=== PATIENT | male | born 2000 | race Caucasian/White ===

== ENCOUNTER 2020-09-29 23:56 | Inpatient (IN) | payer MEDICAID, SELFPAY ==
[2020-09-30 00:04] VITALS: BP 144/90; PULSE 114; RESP 20; TEMP 36.8; O2SAT 100; BMI 37.7
--- NOTE | 2020-09-30 00:19 | W.ED.PSYCH ---
HPI - Psych General: Chief Complaint: Psychiatric Symptoms Stated Complaint: si / took meds Time Seen by Provider: 09/29/20 23:58 Source: patient and EMS Mode of arrival: EMS Limitations: no limitations History of Present Illness: HPI Narrative: 20-year-old male who states he has been hearing voices and having suicidal thoughts over the last week or so. He states he supposed to be on meds but has not been taking them. He states that an hour ago he took 75 200 mg of Xyzal and attempt to kill himself. He states he then decided he did not really want to and called EMS to get here to get help. He denies any worsening improving factors. Associated symptoms: Reports auditory hallucinations, depression and suicidal ideation Review of Systems Const: Denies: fever(s), chills, body aches or change in appetite Eyes: Denies: blurry vision or eye discomfort ENMT: Denies: throat pain or dental pain Card: Denies: chest pain Resp: Denies: dyspnea GI: Denies: abdominal pain, nausea, vomiting or diarrhea : Denies: dysuria Musc: Denies: neck pain or back pain Skin/Breast: Denies: rash Neuro: Denies: headache(s) Psych: Reports: depression, auditory hallucinations and suicidal ideation Chevy/Lymph: Denies: easy bruising All/Imm: Denies: urticaria Physical Exam Const: COMMON NORMALS: no acute distress, patient oriented x3 and healthy appearing HENMT: COMMON NORMALS: normocephalic and atraumatic HEAD & SCALP: normocephalic and atraumatic Eye: COMMON NORMALS: Equal, round and reactive pupils present and EOMs intact bilaterally PUPIL: Yes Equal, round and reactive pupils present Neck/C-Spine: COMMON NORMALS: full ROM and supple Chest: COMMONS NORMALS: normal inspection of the chest and normal palpation of entire chest wall Resp: COMMON NORMALS: normal respiratory effort, No retractions, No use of accessory muscles and clear to auscultation bilaterally AUSCULTATION: clear to auscultation bilaterally Cardio: COMMON NORMALS: regular rate, regular rhythm and No murmurs present (Cardio) RATE: regular rate RHYTHM: regular rhythm GI: COMMON NORMALS: Normal to inspection, nondistended, normoactive bowel sounds present, Soft to palpation, non-tender and no masses PALPATION: Yes Soft to palpation Extremity: COMMON NORMALS: normal to inspection and full ROM Neuro: COMMON NORMALS: patient oriented x3, moves all extremities and no focal motor deficits Psych: COMMON NORMALS: mental status grossly normal, Normal thought process present and cooperative THOUGHT PROCESS: Normal thought process present THOUGHT CONTENT: Yes Suicidality present Skin: COMMON NORMALS: no rashes or lesions noted and no wounds GENERAL SKIN EXAM: no rashes or lesions noted Course Vital Signs: Vital signs: Vital Signs Temperature 98.2 F 09/30/20 00:04 Pulse Rate 114 H 09/30/20 00:04 Respiratory Rate 20 H 09/30/20 00:04 Blood Pressure 144/90 09/30/20 00:04 Pulse Oximetry 100 09/30/20 00:04 MDM - Psych MDM Narrative: Medical decision making narrative: Patient presents here with suicidal ideations along with some hallucinations. Patient have an overdose attempt on Zydis all was not showing any signs he has been well-appearing here. He is stable for admission to a psychiatric unit and is medically cleared. Lab Data: Labs: Lab Results 09/30/20 09/30/20 09/30/20 Range/Units 00:19 00:25 00:25 WBC 8.8 (4.0-10.0) 10^3/ uL RBC 5.18 (4.1-5.3) 10^6/u L Hgb 15.3 (11.7-16.6) g/dL Hct 46.3 (42.0-52.0) % MCV 89.4 (80-94) fL MCH 29.5 (28.0-34.0) pg MCHC 33.0 (30.0-36.0) g/dL RDW 13.4 (12.1-15.1) % Plt Count 260 (130-400) 10^3/c mm MPV 10.4 (7.4-10.4) fL Neut % (Auto) 69.7 % Lymph % (Auto) 16.2 % [place] % (Auto) 11.2 % Eos % (Auto) 1.6 % Baso % (Auto) 0.6 % Neut # (Auto) 6.10 (1.8-7.7) 10^3/u L Lymph # (Auto) 1.4 (0.8-4.8) 10^3/u L [place] # (Auto) 1.0 H (0.2-0.9) 10^3/u L Eos # (Auto) 0.1 (0.0-0.8) 10^3/u L Baso # (Auto) 0.1 (0.0-0.1) 10^3/u L Nucleated RBC % (a uto) 0 % Nucleated RBCs # 0.0 /100WBC Sodium 138 (136-145) mmol/L Potassium 3.6 (3.5-5.1) mmol/L Chloride 106 (98-107) mmol/L Carbon Dioxide 19 L (22-29) mmol/L Anion Gap 16.6 (5-19) BUN 10 (6-20) mg/dL Creatinine 0.7 (0.7-1.2) mg/dL GFR Calculation 142.4 H (90-130) mL/min Glucose 107 (65-115) mg/dL Calculated Osmolal ity 286 (285-295) mOsm/k g Calcium 9.3 (8.5-10.5) mg/dL Total Bilirubin 0.5 (0.15-1.2) mg/dL AST 21 (0-40) U/L ALT 47 H (0-41) U/L Alkaline Phosphata se 85 (40-130) IU/L Total Protein 7.3 (6.6-8.7) g/dL Albumin 4.3 (3.5-5.2) g/dL Globulin 3.0 (1.3-4.6) g/dL Salicylates < 0.3 L (3-10) mg/dL Urine Opiates Scre en Negative (Negative) ng/mL Acetaminophen < 5.0 L (10-30) ug/mL Ur Barbiturates Sc reen Negative (Negative) ng/mL Ur Phencyclidine S crn Negative (Negative) ng/mL Ur Amphetamines Sc reen Negative (Negative) ng/mL U Benzodiazepines Scrn Negative (Negative) ng/mL Urine Cocaine Scre en Negative (Negative) ng/mL U Marijuana (THC) Screen Positive H (Negative) ng/mL Ethyl Alcohol < 10 (0-10) mg/dL EKG Data^: EKG 1: Attestation: I personally reviewed and interpreted this EKG as follows: EKG interpretation date: 09/30/20 EKG interpretation time: 01:04 Interpretation: sinus tach hr [address] or t wave abnormalities qrs 73 qtc 305 Coding Level of Care Code ED Wet Finisher for Chg Fwd Exam Comprehensive
[2020-09-30 00:40] LABS: Basophils # 0.1 10^3/uL (0.0-0.1); Basophils % 0.6 %; Eosinophils # 0.1 10^3/uL (0.0-0.8); Eosinophils % 1.6 %; Hematocrit 46.3 % (42.0-52.0); Hemoglobin 15.3 g/dL (11.7-16.6); Lymphocytes # 1.4 10^3/uL (0.8-4.8); Lymphocytes % 16.2 %; Mean Corpuscular Hemoglobin 29.5 pg (28.0-34.0); Mean Corpuscular Volume 89.4 fL (80-94); Mean Platelet Volume 10.4 fL (7.4-10.4); Monocytes % 11.2 %; Neutrophils % 69.7 %; Nucleated Red Blood Cells % 0 %; Platelet Count 260 10^3/cmm (130-400); Red Blood Count 5.18 10^6/uL (4.1-5.3); Red Cell Distribution Width 13.4 % (12.1-15.1); White Blood Count 8.8 10^3/uL (4.0-10.0)
[2020-09-30 00:49] LABS: Amphetamines Screen Urine Negative (Negative); Barbiturates Screen Urine Negative (Negative); Benzodiazepines Screen Urine Negative (Negative); Cocaine Screen Urine Negative (Negative); Opiate Screen Urine Negative (Negative); PCP Screen Urine Negative (Negative); THC Screen Urine Positive (Negative)
--- NOTE | 2020-09-30 00:52 | ECG_ITS ---
[facility] ED Test Date: 2020-09-30 Pat Name: Micheal Adams Department: Room: Gender: Male Hearing Aid Specialist: : 2000 Requested By: Mariel Ruiz Order Number: [id number] Andrea MD: Fany Harrison M.D. Measurements Intervals [place] Rate: 104 P: 50 AR: 160 QRS: 10 QRSD: 73 T: 34 QT: 244 QTc: 322 Interpretive Statements SINUS TACHYCARDIA VOLTAGE CRITERIA FOR LVH [MEETS CRITERIA IN ONE OF: R(aVL), S(V1), R(V5), R(V5/V6)+S(V1)] NONSPECIFIC T-WAVE ABNORMALITY Compared to ECG 11/28/2017 12:51:59 Left ventricular hypertrophy now present Sinus rhythm no longer present T-wave abnormality still present Electronically Signed On 10-03-2020 0:18:52 CDT by Fany Harrison M.D. [email or web address]
[2020-09-30 01:22] LABS: Alanine Aminotransferase 47 U/L (0-41); Albumin Level 4.3 g/dL (3.5-5.2); Alkaline Phosphatase 85 IU/L (40-130); Anion Gap 16.6 (5-19); Aspartate Amino Transferase 21 U/L (0-40); Blood Urea Nitrogen 10 mg/dL (6-20); Calcium 9.3 mg/dL (8.5-10.5); Carbon Dioxide 19 mmol/L (22-29); Chloride 106 mmol/L (98-107); Glomerular Filtration Rate 142.4 mL/min (90-130); Glucose 107 mg/dL (65-115); Osmolality Calculated 286 mOsm/kg (285-295); Potassium 3.6 mmol/L (3.5-5.1); Sodium 138 mmol/L (136-145); Total Bilirubin 0.5 mg/dL (0.15-1.2); Total Protein 7.3 g/dL (6.6-8.7)
[2020-09-30 01:26] LABS: Acetaminophen < 5.0 ug/mL (10-30); Alcohol Level < 10 mg/dL (0-10); Salicylate < 0.3 mg/dL (3-10)
[2020-09-30 01:50] VITALS: BP 143/83; PULSE 105; RESP 18; O2SAT 96
[2020-09-30 02:44] VITALS: BP 159/113; PULSE 104; RESP 20; TEMP 37; O2SAT 98
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
[2020-09-30 06:00] VITALS: BP 131/89; PULSE 76; RESP 18; TEMP 36.7; O2SAT 97
[2020-09-30 14:00] VITALS: BP 120/75; PULSE 73; RESP 17; TEMP 36.8; O2SAT 95
--- NOTE | 2020-09-30 18:42 | P.HP_ITS ---
Providers/Chief Complaint Admitting Physician: Max Chaudhary MD Chief Complaint: si / took meds HPI NPU History of Present Illness Micheal Adams is a 20 year old male admitted to the psychiatric unit due to suicidal ideation and intentional overdose and hallucinations. The ED note states: 20-year-old male who states he has been hearing voices and having suicidal thoughts over the last week or so. He states he supposed to be on meds but has not been taking them. He states that an hour ago he took 75 200 mg of Xyzal and attempt to kill himself. He states he then decided he did not really want to and called EMS to get here to get help. He denies any worsening improving factors. The patient says that his symptoms have gotten the best of him lately. He said he started contemplating suicide last February when, I learned my reality was false. He has been working up to the moment when he might be able to kill himself. He has been increasingly depressed, but says now he is in shock, bec ause he did not expect to be alive. He says he is not wanting to now, but is not wanting to live like this. The patient estimates he has been hospitalized 40 or 50. He says he was in 4 or more residential placement as a child and adolescent. He says he is currently not taking psychiatric medication and has no therapist. The patient says that he rarely drinks alcohol, but does get drunk without blacking out. He says he smokes marijuana daily for the past 1 or 2 years. He says that marijuana does not stop his symptoms but does make them smoother. Has smoked less regularly since his teen years. He smokes cigarettes rarely. Psychiatric history: As above. Substance use history: As above. Family history: He says his mother was a methamphetamine user and most everybody in his family is an alcoholic. Psychosocial history: The patient says that he grew up in [place] and says I grew up in the [facility]. He attended high school until his senior year when he quit. He has been on disability since his teen years. He devises liking women, and has 1 woman friend he is attracted to. He does not want to date her because he does not want to mess up their friendship. Legal history: None Medical history: He says he is tired frequently, has mild nausea often, and occasionally gets dizzy. Otherwise he has no significant medical history. Review of Systems General: Reports: 10 or more systems reviewed and unremarkable except in HPI and below Meds NPU Home Medications Medication Instructions Recorded Confirmed Last Taken Type No Known Home Medications 09/30/20 09/30/20 Unknown History Allergies Allergy/AdvReac Type Severity Reaction Status Date / Time No Known Allergies Allergy Verified 09/30/20 00:10 PFSH NPU PFS: Medical History Alcohol use disorder, mild, abuse Cannabis use disorder, mild, abuse Major depressive disorder, recurrent, severe with psychotic features Mental Status Exam MSE Comments: This is an articulate, friendly, overweight man who was cooperative and transparent with the exam. He made good eye contact. No psychomotor agitation or retardation. Speech was halting without pressure. He was alert and oriented to person, place, time, and situation. Attention and concentration were intact. He is able to spell the word WORLD correctly forwards and backwards. Memory was intact. He remembers 3/3 words immediately and at 3 minutes. He knows the names of the past 5 presidents. Mood is depressed and anxious. Affect is anxious. Thought process: Somewhat suspicious, but otherwise logical and goal-directed. Thought content he denies hearing voices or seeing things currently. He says he no longer wants to kill himself. No homicidal ideation. No delusions are noted. Insight and judgment appear to be fair. Vitals/I&O/Wt Last Vital Signs Temp 97.9 F 10/01/20 06:00 Pulse 84 10/01/20 06:00 Resp 15 10/01/20 06:00 BP 115/76 10/01/20 06:00 Pulse Ox 99 10/01/20 06:00 Weight last 48 hrs Weight 144.242 kg Data NPU : 09/30/20 00:25 09/30/20 00:25 A&P Additional A&P Information This is a 20-year-old man with multiple hospitalizations and residential treatments in childhood and adolescence, who took an intentional overdose of medication in an attempt to kill himself. 1. The patient is willing to consider taking medication, but wants to think carefully about it. We will reconsider tomorrow. 2. Continue every 15-minute checks for safety. 3. Encourage individual, group, and milieu therapies. 4. Encourage sober living treatment after discharge at the highest level of care to which she is willing to commit. Involuntary Hold Information 96 Hour Hold: 96 Hour Involuntary Admission: Yes 96 Hour Hold Ending Date: 10/06/20 96 Hour Hold Ending Time: 00:25 Attestations NPU Medical Necessity Statement*: Psychiatric hospitalization is medically necessary to lethal means and stabilize after a suicide attempt. We will monitor medications and make changes as indicated. Patient will be in the hospital for over 2 midnights. Likely length of stay is 3 to 5 days. Coding Level of Care Code Acute Golf Caddy for Maxx Jacobs
[2020-09-30 22:00] VITALS: BP 124/76; PULSE 94; RESP 17; TEMP 36.8; O2SAT 97
[2020-09-30] MEDS: hyDROXYzine 25 mg Capsule 50 MG PO (22:55)
[2020-09-30] MEDS: trazodone 50 mg Tablet PO (22:55)
--- NOTE | 2020-09-30 23:00 | PC.NURSE ---
Trazodone and Vistaril given for sleep and anxiety.
[2020-10-01 06:00] VITALS: BP 115/76; PULSE 84; RESP 15; TEMP 36.6; O2SAT 99
--- NOTE | 2020-10-01 13:20 | PM.NPN ---
Subjective NPU Subjective: Interval history: The patient says that he is doing better today. However he still does feel depressed. In reviewing the past couple of weeks, he says that his depression has ranged between 3/10 and 10/10 in intensity. Suicidal ideation is improving. We talked about his relationship with his parents and siblings. The best relationships are with his siblings. He also has social anxiety, and gets nervous going into stores. Also he explains that he does not like feeling paranoid, but is worried things would be more boring if he was not so suspicious. Mental Status Exam MSE Comments: I met with the patient in the day room. He was respectful, friendly, cooperative, and open. Psychomotor activity is normal. Speech is at a regular rate and rhythm without pressure. He is alert and oriented to person and situation. Attention is intact to exam. Mood is depressed. Affect is brighter than yesterday. Thought process is logical and goal-directed. Thought content: He has auditory hallucinations as well as paranoia. No suicidal or homicidal ideation. Insight and judgment are still limited. Impulse control is not stable. Vitals/I&O/Wt Last Vital Signs Temp 97.2 F L 10/01/20 14:00 Pulse 84 10/01/20 14:00 Resp 20 H 10/01/20 14:00 BP 149/93 10/01/20 14:00 Pulse Ox 98 10/01/20 14:00 Weight last 48 hrs Weight 144.242 kg Data NPU : 09/30/20 00:25 09/30/20 00:25 A&P Assessment and plan (1) Major depressive disorder, recurrent, severe with psychotic features: Status: Acute (2) Cannabis use disorder, mild, abuse: Status: Acute (3) Alcohol use disorder, mild, abuse: Status: Acute (4) Social anxiety disorder: Status: Acute Additional A&P Information This is a 20-year-old man with multiple hospitalizations and residential treatments in childhood and adolescence, who took an intentional overdose of medication in an attempt to kill himself. 1. The patient is willing to consider taking medication, but wants to think carefully about it. I recommended Zoloft to address both depression and social anxiety. He would like to read some information before deciding. 2. Continue every 15-minute checks for safety. 3. Encourage individual, group, and milieu therapies. 4. Encourage sober living treatment after discharge at the highest level of care to which she is willing to commit. Involuntary Hold Information 96 Hour Hold: 96 Hour Involuntary Admission: Yes 96 Hour Hold Ending Date: 10/06/20 96 Hour Hold Ending Time: 00:25 Attestations NPU Medical Necessity Statement*: Psychiatric hospitalization is medically necessary to lethal means and stabilize. We will monitor medications and make changes as indicated. Estimated length of stay is 2-4 days. Coding Level of Care Code Acute Demonstrator Electric Gas Appliances for Maxx Ritterd Diagnoses Major depressive disorder, recurrent, severe with psychotic features F33.3 Cannabis use disorder, mild, abuse F12.10 Alcohol use disorder, mild, abuse F10.10 Social anxiety disorder F40.10
[2020-10-01 14:00] VITALS: BP 149/93; PULSE 84; RESP 20; TEMP 36.2; O2SAT 98
[2020-10-01 20:50] VITALS: BP 149/91; PULSE 80; RESP 18; TEMP 36.8; O2SAT 98
[2020-10-01] MEDS: trazodone 50 mg Tablet PO (23:03)
[2020-10-01] MEDS: hyDROXYzine 25 mg Capsule 50 MG PO (23:03)
--- NOTE | 2020-10-01 23:05 | PC.NURSE ---
trazodone 50 mg and Vistarim 50 mg given for sleep and anxiety.
[2020-10-02 06:00] VITALS: BP 122/73; PULSE 77; RESP 17; TEMP 36.5; O2SAT 96
[2020-10-02 14:00] VITALS: BP 147/95; PULSE 89; RESP 17; TEMP 36.8; O2SAT 97
--- NOTE | 2020-10-02 15:25 | P.PN_ITS ---
Subjective NPU Subjective: Interval history: Micheal was more suspicious today, wanting to know about my agenda. He felt that I might be part of a conspiracy. Nevertheless, he said he would tell me what he was thinking and feeling. He says that things get bleak at times and he worries that he will not be able to keep on going. He is concerned that he will again get to the point where he wants to end his life. He reviewed the information I gave him on Zoloft and Abilify, and wants to start by taking Zoloft. He understands risks, benefits, side effects and alternatives and consents to its use. He is hoping that it will help with his anxiety and depression. He also wants to look at other antipsychotic info sheets, and I agreed to provide him for more: Risperdal, Invega, Latuda, and Haldol. His idea of having gland, and a place to right, continues to provide him with hope. He was also concerned that today was my last day on service, and seemed relieved when I told him that I will be here all next week. Mental Status Exam MSE Comments: I met with the patient in the day room. He was respectful, friendly, cooperative, and open, even though he had suspicions about my motives. Psychomotor activity is normal. Speech is at a regular rate and rhythm without pressure. He is alert and oriented to person and situation. Attention is intact to exam. Mood is depressed. Affect is brighter than yesterday. Thought process is logical and goal-directed. Thought content: He has auditory hallucinations as well as paranoia. No suicidal or homicidal ideation. Insight and judgment are still limited. Impulse control is not stable. Vitals/I&O/Wt Last Vital Signs Temp 98.3 F 10/02/20 14:00 Pulse 89 10/02/20 14:00 Resp 17 10/02/20 14:00 BP 147/95 10/02/20 14:00 Pulse Ox 97 10/02/20 14:00 Weight last 48 hrs Weight 144.242 kg Data NPU : 09/30/20 00:25 09/30/20 00:25 A&P Assessment and plan (1) Major depressive disorder, recurrent, severe with psychotic features: Status: Acute (2) Social anxiety disorder: Status: Acute (3) Alcohol use disorder, mild, abuse: Status: Acute (4) Cannabis use disorder, mild, abuse: Status: Acute Additional A&P Information This is a 20-year-old man with multiple hospitalizations and residential treatments in childhood and adolescence, who took an intentional overdose of medication in an attempt to kill himself. 1. Add Zoloft 50 mg daily for depression and anxiety. Patient has carefully reviewed materials about the medication and I have answered his questions. He gives consent. Consider adding an antipsychotic. He would like to see the info sheets on 4 medicines in addition to the Abilify he reviewed yesterday. We will give him info on Risperdal, Invega, Latuda, and Haldol. We may start an antip sychotic tomorrow. 2. Continue every 15-minute checks for safety. 3. Encourage individual, group, and milieu therapies. 4. Encourage sober living treatment after discharge at the highest level of c are to which she is willing to commit. Involuntary Hold Information 96 Hour Hold: 96 Hour Involuntary Admission: Yes 96 Hour Hold Ending Date: 10/06/20 96 Hour Hold Ending Time: 00:25 Attestations NPU Medical Necessity Statement*: Psychiatric hospitalization is medically necessary to lethal means and stabilize. We will monitor medications and make changes as indicated. Estimated length of stay is 2-4 days. Coding Level of Care Code Acute Brim Rounder for Maxx Jacobs Diagnoses Major depressive disorder, recurrent, severe with psychotic features F33.3 Social anxiety disorder F40.10 Alcohol use disorder, mild, abuse F10.10 Cannabis use disorder, mild, abuse F12.10
[2020-10-02] MEDS: sertraline 50 mg Tablet PO (16:16)
[2020-10-02 22:00] VITALS: BP 151/109; PULSE 94; RESP 18; TEMP 37.1; O2SAT 98
[2020-10-03] MEDS: OLANZapine 5 mg ODT PO (00:17)
[2020-10-03] MEDS: hyDROXYzine 25 mg Capsule 50 MG PO ×2 (00:17→20:20)
[2020-10-03 01:10] VITALS: BP 158/91; PULSE 116; RESP 24; TEMP 36.8
--- NOTE | 2020-10-03 02:36 | PC.NURSE ---
10/02/20 at 0010 found patient to be sitting on floor up against the wall with his bilateral upper arm and hands shaking. He stated he thinks it was anxiety and he had tingling going down both arms. Respirations were increased at 24, BP was 158/91. Patient assessed and verbal deescalation and prn medication given for this. Patient assisted back to bed without incidence.
[2020-10-03 06:00] VITALS: BP 145/91; PULSE 70; RESP 20; TEMP 37; O2SAT 97
[2020-10-03] MEDS: sertraline 50 mg Tablet PO (08:20)
[2020-10-03 14:00] VITALS: BP 146/87; PULSE 81; RESP 16; TEMP 36.3; O2SAT 96
--- NOTE | 2020-10-03 14:23 | P.PN_ITS ---
Subjective NPU Subjective: Interval history: I met with the patient in his room, and he apologized for making accusations of me yesterday. It is apparent that he still believes that there is a conspiracy, but now feels that I am not part of it and he was wrong to think that. Depression is improving, though he still has some feeling he might be better off . 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 Sleep and energy are good. No medication side effects on the Zoloft. We talked about the antipsychotic medications he had been considering, after reading patient information forms on 5 different medications. He selected Haldol as the one he prefers to take. We reviewed risks, benefits, side effects, including tardive dyskinesia, and alternatives, and he gave his consent to using Haldol. We also talked about discharge tomorrow as long as he is able to tolerate the dose of Haldol this afternoon and tomorrow morning. He likes this idea and feels that he will be ready by then. Mental Status Exam MSE Comments: I met with the patient in his room. He was respectful, friendly, cooperative, and open. Psychomotor activity is normal. Speech is at a regular rate and rhythm without pressure. He is alert and oriented to person and situation. Attention is intact to exam. Mood is depressed. Affect is bright. Thought process is logical and goal-directed. Thought content: He has auditory hallucinations as well as paranoia. No suicidal or homicidal ideation. Insight and judgment are improved. Impulse control is improved. Vitals/I&O/Wt Last Vital Signs Temp 97.3 F L 10/03/20 14:00 Pulse 81 10/03/20 14:00 Resp 16 10/03/20 14:00 BP 146/87 10/03/20 14:00 Pulse Ox 96 10/03/20 14:00 Weight last 48 hrs Weight 144.242 kg Data NPU : 09/30/20 00:25 09/30/20 00:25 A&P Assessment and plan (1) Major depressive disorder, recurrent, severe with psychotic features: Status: Acute (2) Social anxiety disorder: Status: Acute (3) Alcohol use disorder, mild, abuse: Status: Acute (4) Cannabis use disorder, mild, abuse: Status: Acute Additional A&P Information This is a 20-year-old man with multiple hospitalizations and residential treatments in childhood and adolescence, who took an intentional overdose of medication in an attempt to kill himself. 1. Added Zoloft 50 mg daily for depression and anxiety. Patient has selected Haldol as the antipsychotic he wants to take for his depression with psychotic features. He gave consent. We will start at 1 mg daily. 2. Continue every 15-minute checks for safety. 3. Encourage individual, group, and milieu therapies. 4. Encourage sober living treatment after discharge at the highest level of care to which she is willing to commit. Involuntary Hold Information 96 Hour Hold: 96 Hour Involuntary Admission: Yes 96 Hour Hold Ending Date: 10/06/20 96 Hour Hold Ending Time: 00:25 Attestations NPU Medical Necessity Statement*: Psychiatric hospitalization is medically necessary to lethal means and stabilize. We will monitor medications and make changes as indicated. Anticipate discharge tomorrow. Coding Level of Care Code Acute Fiber Optic Central Office Installer for Maxx Jacobs Diagnoses Major depressive disorder, recurrent, severe with psychotic features F33.3 Social anxiety disorder F40.10 Alcohol use disorder, mild, abuse F10.10 Cannabis use disorder, mild, abuse F12.10
[2020-10-03] MEDS: haloperidol 1 mg Tablet PO (16:53)
--- NOTE | 2020-10-03 20:20 | PC.NURSE ---
pt requested sleep and anxiety med, Trazodone 50mg po given for sleep, and Vistaril 50mg po given for anxiety.
[2020-10-03] MEDS: trazodone 50 mg Tablet PO (20:21)
[2020-10-03 20:49] VITALS: BP 161/109; PULSE 81; RESP 18; TEMP 36.6; O2SAT 97
--- NOTE | 2020-10-03 21:30 | PC.NURSE ---
pt resting quietly with both eyes closed.
[2020-10-04 06:00] VITALS: BP 120/79; PULSE 63; RESP 19; TEMP 36.3; O2SAT 98
[2020-10-04] MEDS: sertraline 50 mg Tablet PO (08:12)
[2020-10-04] MEDS: haloperidol 1 mg Tablet PO (08:12)
--- NOTE | 2020-10-04 11:32 | P.DS_ITS ---
Diagnoses at Discharge Discharge Diagnosis (1) Major depressive disorder, recurrent, severe with psychotic features: Status: Resolved (2) Social anxiety disorder: Status: Acute (3) Alcohol use disorder, mild, abuse: Status: Acute (4) Cannabis use disorder, mild, abuse: Status: Acute Reason for Visit Reason for Visit: si / took meds Brief History: Micheal Adams is a 20 year old male admitted to the psychiatric unit due to suicidal ideation and intentional overdose and hallucinations. The ED note states: 20-year-old male who states he has been hearing voices and having suicidal thoughts over the last week or so. He states he supposed to be on meds but has not been taking them. He states that an hour ago he took 75 200 mg of Xyzal and attempt to kill himself. He states he then decided he did not really want to and called EMS to get here to get help. He denies any worsening improving factors. The patient says that his symptoms have gotten the best of him lately. He said he started contemplating suicide last February when, I learned my reality was false. He has been working up to the moment when he might be able to kill himself. He has been increasingly depressed, but says now he is in shock, because he did not expect to be alive. He says he is not wanting to now, but is not wanting to live like this. The patient estimates he has been hospitalized 40 or 50. He says he was in 4 or more residential placement as a child and adolescent. He says he is currently not taking psychiatric medication and has no therapist. The patient says that he rarely drinks alcohol, but does get drunk without blacking out. He says he smokes marijuana daily for the past 1 or 2 years. He says that marijuana does not stop his symptoms but does make them smoother. Has smoked less regularly since his teen years. He smokes cigarettes rarely. Hospital Course Hospital Course Micheal Adams is a 20 year old male admitted to the psychiatric unit due to suicidal ideation and intentional overdose and hallucinations. He was admitted to the neuropsychiatric unit for definitive treatment of these issues. He was already medically stable after the overdose when he arrived. On the unit he slowly acclimated to the individual, group and milieu therapies. There were some mild psychotic symptoms present initially which resolved as he was started on Zoloft 50 mg daily, Trazodone 50 mg at bedtime, and Haldol 1 mg in the morning. The Haldol was his choice out of the 5 antipsychotics offered. There were no medication side effects. He was receptive to treatment team recom mendations and showed modest improvement and was able to contract for safety prior to discharge. During the hospitalization, patient had routine laboratory studies which were within normal limits except for few outliers. Additionally there was a general medical evaluation which was also within normal limits and revealed no new acute processes. Discharge Summary: At the time of discharge, psychosis and lethality were denied. Mood and anxiety were well managed. Patient endorsed a plan to avoid all drugs of abuse and follow-up with the aftercare recommendations of the treatment team. He will return to live at his mother's house, the will rent a place with a friend. Patient was evaluated and deemed to be absent credible lethality, and had achieved the maximum benefit from an inpatient hospitalization, so was discharged. Involuntary Hold Information 96 Hour Hold: 96 Hour Involuntary Admission: Yes 96 Hour Hold Ending Date: 10/06/20 96 Hour Hold Ending Time: 00:25 Mental Status Exam MSE Comments: I met with the patient in his room. He was respectful, friendly, cooperative, and open. Psychomotor activity is normal. Speech is at a regular rate and rhythm without pressure. He is alert and oriented to person and situation. Attention is intact to exam. Mood is euthymic now. Affect is bright. Thought process is logical and goal-directed. Thought content: He denies auditory hallucinations and still has mild paranoia. No visual hallucinations. No suicidal or homicidal ideation. Insight and judgment are improved. Impulse control is improved. Discharge Data Vitals: Last Vital Signs Temp 97.4 F L 10/04/20 06:00 Pulse 63 10/04/20 06:00 Resp 19 H 10/04/20 06:00 BP 120/79 10/04/20 06:00 Pulse Ox 98 10/04/20 06:00 Discharge Plan Discharge Patient Disposition: Home Condition: Stable Prescriptions: New haloperidol 1 mg Tablet 1 mg PO DAILY 30 Days Qty: 30 RF: 0 trazodone 50 mg Tablet 50 mg PO BEDTIME PRN (Reason: Sleep) 30 Days Qty: 30 RF: 0 sertraline 50 mg Tablet 50 mg PO DAILY 30 Days Qty: 30 RF: 0 No Action No Known Home Medications RF: 0 Discharge Orders: Discharge Order (Routine); Ordered 10/04/20 Ordered By: Max Chaudhary Referrals: [facility] [Outside] (Walk in Tuesdays or 7:30am to 3pm. The earlier the better.) Discharge Diet: Usual diet Discharge Activity: Resume usual activity Patient Instructions: Generalized Anxiety Disorder (DC), Opioid Safety Discharge Attestations NPU Time Spent in Discharge Care*: less than 30 min Specific Discharge Activities: Specific discharge activities: educating patient, discussing with patient case coordinator/social workers/dc planners, documenting/other paperwork and evaluating patient/reviewing data Status at Discharge: Cognitive status at discharge: cognitively intact , Behavioral status at discharge: cooperative , Functional status at discharge: independent ambulation Overall status at discharge: patient is back to baseline Coding Level of Care Code Acute Chg FW DC note Diagnoses Major depressive disorder, recurrent, severe with psychotic features F33.3 Social anxiety disorder F40.10 Alcohol use disorder, mild, abuse F10.10 Cannabis use disorder, mild, abuse F12.10
[2020-10-04 11:37] VITALS: BP 120/79; PULSE 63; RESP 19; TEMP 36.3; O2SAT 98
== END 2020-10-04 13:53 | disposition home or self-care (01) | DRG 914 ==
LOC: ER 09-30 00:42 → NP 09-30 02:25
PROVIDERS: Admitting Provider Psychiatry & Neurology Child & Adolescent Psychiatry; Emergency Provider Emergency Medicine; Visit Provider Psychiatry & Neurology Child & Adolescent Psychiatry
DX: T14.91XA Suicide attempt, initial encounter (principal); F33.3 Major depressive disorder, recurrent, severe with psychotic symptoms; T45.0X2A Poisoning by antiallergic and antiemetic drugs, intentional self-harm, initial encounter; F12.10 Cannabis abuse, uncomplicated; F10.10 Alcohol abuse, uncomplicated; Z81.1 Family history of alcohol abuse and dependence; Z81.3 Family history of other psychoactive substance abuse and dependence; F40.10 Social phobia, unspecified
CPT/HCPCS: 80053; 80306; 80307; 85025; 93005; 99285

== ENCOUNTER 2021-06-13 18:17 | Inpatient (IN) | payer MEDICAID, SELFPAY ==
[2021-06-13 18:27] VITALS: BP 162/93; PULSE 111; RESP 18; TEMP 36.6; O2SAT 97; BMI 29.6
[2021-06-13 20:13] LABS: Basophils # 0.1 10^3/uL (0.0-0.1); Basophils % 0.8 %; Eosinophils # 0.2 10^3/uL (0.0-0.8); Eosinophils % 2.1 %; Hematocrit 44.6 % (42.0-52.0); Hemoglobin 15.1 g/dL (11.7-16.6); Lymphocytes # 2.4 10^3/uL (0.8-4.8); Lymphocytes % 26.7 %; Mean Corpuscular HGB Conc 33.9 g/dL (30.0-36.0); Mean Corpuscular Hemoglobin 29.7 pg (28.0-34.0); Mean Corpuscular Volume 87.6 fl (80-94); Mean Platelet Volume 10.4 fL (7.4-10.4); Monocytes % 11.1 %; Neutrophils # 5.24 10^3/uL (1.8-7.7); Nucleated Red Blood Cells % 0 %; Platelet Count 253 10^3/cmm (130-400); Red Blood Count 5.09 10^6/uL (4.1-5.3); Red Cell Distribution Width 13.3 % (12.1-15.1); White Blood Count 8.9 10^3/uL (4.0-10.0)
[2021-06-13 20:16] LABS: Amphetamines Screen Urine Negative (Negative); Barbiturates Screen Urine Negative (Negative); Benzodiazepines Screen Urine Negative (Negative); Cocaine Screen Urine Negative (Negative); Opiate Screen Urine Negative (Negative); PCP Screen Urine Negative (Negative); THC Screen Urine Positive (Negative)
--- NOTE | 2021-06-13 20:16 | ED_ITS ---
HPI - General Adult General: Chief complaint: Psychiatric Symptoms Stated complaint: Mental eval Time Seen by Provider: 06/13/21 18:24 History of Present Illness: HPI: [20]yo patient w/ hx of depression presenting for SI. Patient tells me that he is depressed and having suicidal ideation. Patient is concerned that he is not getting better. On arrival, the patient is AAOx3 and cooperative with my evaluation. No focal complaints of chest pain, shortness of breath, palpitations, N/V, focal GI/ complaints. Currently denies HI. No complaints of hallucinations. Onset: acute Duration: ongoing Location: home Severity: severe Associated symptoms: Deny chest pain, dyspnea, nausea, rash, palpitations or vomiting Review of Systems Const: Denies: fever(s) or chills Eyes: Denies: change in vision ENMT: Denies: mouth pain Card: Denies: chest pain or palpitations Resp: Denies: dyspnea or non-productive cough GI: Denies: abdominal pain, nausea, vomiting or diarrhea : Denies: dysuria Musc: Denies: extremity pain Skin/Breast: Denies: rash or new lesions Neuro: Denies: weakness in extremities Psych: Reports: depression Chevy/Lymph: Denies: easy bruising PFSH ED PFSH: Medical History (Updated 06/13/21 @ 20:15 by Caitlin Bell MD) Alcohol use disorder, mild, abuse Cannabis use disorder, mild, abuse Major depressive disorder, recurrent, severe with psychotic features Social anxiety disorder Social History (Updated 06/13/21 @ 20:18 by Caitlin Bell MD) Smoking and tobacco status: never smoked Alcohol intake: never Substance/Drug Use: current Physical Exam Const: COMMON NORMALS: alert HENMT: COMMON NORMALS: atraumatic HEAD & SCALP: atraumatic MOUTH: moist mucous membranes not abnormal Eye: COMMON NORMALS: EOMs intact bilaterally and conjunctivae normal CONJUNCTIVA: Yes conjunctivae normal Neck/C-Spine: COMMON NORMALS: full ROM and supple Resp: COMMON NORMALS: normal respiratory effort and clear to auscultation bilaterally AUSCULTATION: clear to auscultation bilaterally Cardio: COMMON NORMALS: regular rate RATE: regular rate GI: COMMON NORMALS: Soft to palpation and non-tender PALPATION: Yes Soft to palpation Extremity: COMMON NORMALS: full ROM Neuro: SENSORIUM/ORIENTATION: Yes alert MOTOR EXAM: No Abnormal motor strength present and Other motor observations present (no focal motor deficits) Psych: COMMON NORMALS: speech normal SPEECH: Yes normal speech MOOD & AFFECT: Yes depressed mood Course Vital Signs: Vital signs: Vital Signs Temperature 97.9 F 06/13/21 18:27 Pulse Rate 111 H 06/13/21 18:27 Respiratory Rate 18 06/13/21 18:27 Blood Pressure 162/93 06/13/21 18:27 Pulse Oximetry 97 06/13/21 18:27 MDM - General Adult Medical Decision Making [20]yo patient w/ hx of depression presenting for depression and SI. HDS, exam within normal limit Thoughts are linear and organized, and the patient has no AH/VH, or HI. Clinically the patient displays no overt toxidrome; they are well appearing, with low suspicion for toxic ingestion given history and exam. Symptoms unlikely 2/2 anemia, hypothyroidism, infection, or ICH. Workup: CBC, CMP, Lipase, salicylate/tylenol, UDS Lab findings: wnl, +marijuana in the urine [9:00pm] On reassessment, labs and workup wnl. Patient is hemodynamically stable with no acute medical complaints. Case discussed with psychiatric provider Dr. Layne at [facility] psych inpatient with recommendation for admission Disposition: Psych Lab Data : 06/13/21 20:05 06/13/21 20:05 Laboratory Results WBC 8.9 10^3/uL (4.0-10.0) 06/13/21 20:05 RBC 5.09 10^6/uL (4.1-5.3) 06/13/21 20:05 Hgb 15.1 g/dL (11.7-16.6) 06/13/21 20:05 Hct 44.6 % (42.0-52.0) 06/13/21 20:05 MCV 87.6 fl (80-94) 06/13/21 20:05 MCH 29.7 pg (28.0-34.0) 06/13/21 20:05 MCHC 33.9 g/dL (30.0-36.0) 06/13/21 20:05 RDW 13.3 % (12.1-15.1) 06/13/21 20:05 Plt Count 253 10^3/cmm (130-400) 06/13/21 20:05 MPV 10.4 fL (7.4-10.4) 06/13/21 20:05 Neut % (Auto) 59.0 % 06/13/21 20:05 Lymph % (Auto) 26.7 % 06/13/21 20:05 [place] % (Auto) 11.1 % 06/13/21 20:05 Eos % (Auto) 2.1 % 06/13/21 20:05 Baso % (Auto) 0.8 % 06/13/21 20:05 Neut # (Auto) 5.24 10^3/uL (1.8-7.7) 06/13/21 20:05 Lymph # (Auto) 2.4 10^3/uL (0.8-4.8) 06/13/21 20:05 [place] # (Auto) 1.0 10^3/uL (0.2-0.9) H 06/13/21 20:05 Eos # (Auto) 0.2 10^3/uL (0.0-0.8) 06/13/21 20:05 Baso # (Auto) 0.1 10^3/uL (0.0-0.1) 06/13/21 20:05 Nucleated RBC % (auto) 0 % 06/13/21 20:05 Nucleated RBCs # 0.0 /100WBC 06/13/21 20:05 Urine Opiates Screen Negative ng/mL (Negative) 06/13/21 19:45 Ur Barbiturates Screen Negative ng/mL (Negative) 06/13/21 19:45 Ur Phencyclidine Scrn Negative ng/mL (Negative) 06/13/21 19:45 Ur Amphetamines Screen Negative ng/mL (Negative) 06/13/21 19:45 U Benzodiazepines Scrn Negative ng/mL (Negative) 06/13/21 19:45 Urine Cocaine Screen Negative ng/mL (Negative) 06/13/21 19:45 U Marijuana (THC) Screen Positive ng/mL (Negative) H 06/13/21 19:45 Discharge Plan Discharge Patient Disposition: Admitted As Inpatient Clinical Impression: Depression with suicidal ideation Condition: Stable Coding Level of Care Code ED Certified Industrial Hygienist for [employer] Fwd Exam Comprehensive
--- NOTE | 2021-06-13 20:26 | PC.NURSE ---
Please see providers assessment
[2021-06-13 20:28] VITALS: BP 130/92; PULSE 106; RESP 18; TEMP 36.9; O2SAT 97
[2021-06-13 20:30] VITALS: BP 157/93; PULSE 93; RESP 18; TEMP 36.9; O2SAT 95
[2021-06-13 20:48] LABS: Alanine Aminotransferase 31 U/L (0-41); Albumin Level 4.9 g/dL (3.5-5.2); Alkaline Phosphatase 103 IU/L (40-130); Aspartate Amino Transferase 19 U/L (0-40); Blood Urea Nitrogen 7 mg/dL (6-20); Calcium 9.9 mg/dL (8.5-10.5); Carbon Dioxide 22 mmol/L (22-29); Chloride 104 mmol/L (98-107); Globulin 3.4 g/dL (1.3-4.6); Glomerular Filtration Rate 142.4 mL/min (90-130); Glucose 95 mg/dL (65-115); Osmolality Calculated 284 mOsm/kg (285-295); Sodium 138 mmol/L (136-145); Thyroid Stimulating Hormone 1.44 uIU/mL (0.27-4.20); Total Bilirubin 0.7 mg/dL (0.15-1.2); Total Protein 8.3 g/dL (6.6-8.7)
[2021-06-13 20:57] LABS: Acetaminophen < 5.0 ug/mL (10-30); Alcohol Level < 10 mg/dL (0-10); Salicylate < 0.3 mg/dL (3-10)
[2021-06-13] MEDS: hyDROXYzine 25 mg Capsule 50 MG PO (21:10)
[2021-06-13] MEDS: risperiDONE 2 mg Tablet PO (21:10)
[2021-06-13] MEDS: trazodone 50 mg Tablet PO (22:07)
[2021-06-13] MEDS: OLANZapine 5 mg ODT PO (23:34)
--- NOTE | 2021-06-14 05:14 | PC.NURSE ---
Patient was administered his scheduled Risperdal and prn vistaril for anxiety on admit. The vistaril did not help the patients anxiety. Trazadone was given to help him sleep. This was ineffective. Zyprexa was then givedn and it proved to be effective as the patient rested comfortably after that.
[2021-06-14 06:00] VITALS: BP 147/65; PULSE 58; RESP 18; TEMP 36.5; O2SAT 98
[2021-06-14] MEDS: risperiDONE 2 mg Tablet PO (09:59)
--- NOTE | 2021-06-14 11:14 | W.PM.NPUH&PS ---
Providers/Chief Complaint Admitting Physician: Narayan Layne MD Chief Complaint: Mental eval HPI NPU History of Present Illness Micheal Adams is a 20 year old male admitted to our emergency department with the following report: HPI: [20]yo patient w/ hx of depression presenting for SI.? Patient tells me that he is depressed and having suicidal ideation.? Patient is concerned that he is not getting better. On arrival, the patient is AAOx3 and cooperative with my evaluation. No focal complaints of chest pain, shortness of breath, palpitations, N/V, focal GI/ complaints. Currently denies HI. No complaints of hallucinations. He was admitted to the neuropsychiatry unit for definitive treatment of these issues. He said he has had worsening symptoms for the last couple of months. He said that he stopped the Haldol and Zoloft shortly after the last admission because he was having side effects. He was having sweating and hand tremors. He stopped the medicines and they went away. His current psychiatrist has gradually increased him up to risperidone 2 mg twice a day. He says he takes it all at bedtime because he has difficulty sleeping and it helps. He said the 4 mg knocks him out. He has not really helped his psychotic symptoms. He hears taking noises. He also gets paranoid. He thinks that people around him are spies and that there is a conspiracy against him. He initially just told me about the social anxiety that he has. He lives in a hotel room which caused him $450 per month. His disability is enough to pay for that and food. Sometimes he is paralyzed staying cannot get out of bed or move. He because have a catatonic state. Sometimes his anxiety is overwhelming. He always has difficulty sleeping without taking something. Marijuana has been what has been most helpful for him. He does not think that he has taken a medication which has helped his anxiety or his paranoia previously. When he was a teenager he was on about 15 different medications and he does not know if any of them helped. His childhood was bad. He said that they were too many bad things that he could not start to count them. He said that his whole family was crazy. His mother was a methamphetamine addict. Several family members are alcoholics. He said that he grew up in the system . He says that he has been diagnosed with schizophrenia but does not believe that he has schizophrenia. He was educated on the treatment of anxiety. He agreed to take some Lexapro and increase the risperidone to 6 mg at bedtime. He was admitted here last October with the following discharge summary:Diagnoses at Discharge Discharge Diagnosis (1) Major depressive disorder, recurrent, severe with psychotic features: ?Status:?Resolved (2) Social anxiety disorder: ?Status:?Acute (3) Alcohol use disorder, mild, abuse: ?Status:?Acute (4) Cannabis use disorder, mild, abuse: ?Status:?Acute Reason for Visit si / took meds? Brief History: Micheal Adams is a 20 year old male admitted to the psychiatric unit due to suicidal ideation and intentional overdose and hallucinations.? The ED note states: 20-year-old male who states he has been hearing voices and having suicidal thoughts over the last week or so. He states he supposed to be on meds but has not been taking them. He states that an hour ago he took 75 200 mg of Xyzal and attempt to kill himself. He states he then decided he did not really want to and called EMS to get here to get help. He denies any worsening improving factors. The patient says that his symptoms have gotten the best of him lately.? He said he started contemplating suicide last February when, I learned my reality was false. ? He has been working up to the moment when he might be able to kill himself.? He has been increasingly depressed, but says now he is in shock, because he did not expect to be alive.? He says he is not wanting to now, but is not wanting to live like this. The patient estimates he has been hospitalized 40 or 50.? He says he was in 4 or more residential placement as a child and adolescent.? He says he is currently not taking psychiatric medication and has no therapist. The patient says that he rarely drinks alcohol, but does get drunk without blacking out.? He says he smokes marijuana daily for the past 1 or 2 years.? He says that marijuana does not stop his symptoms but does make them smoother. ? Has smoked less regularly since his teen years.? He smokes cigarettes rarely. Hospital Course Hospital Course Micheal Adams is a 20 year old male admitted to the psychiatric unit due to suicidal ideation and intentional overdose and hallucinations. He was admitted to the neuropsychiatric unit for definitive treatment of these issues. He was already medically stable after the overdose when he arrived. On the unit he slowly acclimated to the individual, group and milieu therapies.? There were some mild psychotic symptoms present initially which resolved as he was started on Zoloft 50 mg daily, Trazodone 50 mg at bedtime, and Haldol 1 mg in the morning. The Haldol was his choice out of the 5 antipsychotics offered. There were no medication side effects.? He was receptive to treatment team recommendations and showed modest improvement and was able to contract for safety prior to discharge.? During the hospitalization, patient had routine laboratory studies which were within normal limits except for few outliers.? Additionally there was a general medical evaluation which was also within normal limits and revealed no new acute processes. Discharge Summary: At the time of discharge, psychosis and lethality were denied.? Mood and anxiety were well managed.? Patient endorsed a plan to avoid all drugs of abuse and follow-up with the aftercare recommendations of the treatment team. He will return to live at his mother's house, the will rent a place with a friend. Patient was evaluated and deemed to be absent credible lethality, and had achieved the maximum benefit from an inpatient hospitalization, so was discharged. ?New ? haloperidol 1 mg Tablet ?? 1 mg PO DAILY 30 Days Qty: 30 RF: 0 ? trazodone 50 mg Tablet ?? 50 mg PO BEDTIME PRN (Reason: Sleep) 30 Days Qty: 30 RF: 0 ? sertraline 50 mg Tablet ?? 50 mg PO DAILY 30 Days Qty: 30 RF: 0 Meds NPU Home Medications Medication Instructions Recorded Confirmed Last Taken Type risperidone 2 mg tablet (Risperdal) 2 mg PO BID 06/13/21 06/13/21 06/12/21 History Allergies Allergy/AdvReac Type Severity Reaction Status Date / Time No Known Allergies Allergy Verified 06/13/21 20:00 PFS NPU PFSH: Medical History (Updated 06/13/21 @ 20:15 by Caitlin Bell MD) Alcohol use disorder, mild, abuse Cannabis use disorder, mild, abuse Major depressive disorder, recurrent, severe with psychotic features Social anxiety disorder Social History (Updated 06/13/21 @ 20:18 by Caitlni Bell MD) Smoking and tobacco status: never smoked Alcohol intake: never Substance/Drug Use: current Mental Status Exam MSE Comments: This is an overweight 20-year-old male who appears approximately his stated age and is in no acute distress. He was pleasant and cooperative with the evaluation. He is dressed in hospital scrubs with fair grooming. psychomotor activity is normal. Speech is at a regular rate and rhythm, normal volume, good articulation, not pressured. Alert, oriented X3 Attention and concentration appears to be normal. Memory is intact Mood is depressed. Affect is mildly dysphoric. Thought process is logical and goal-directed. Thought content: Denies auditory and visual hallucinations. No delusions or paranoia are noted. No current suicidal ideation, and no homicidal ideation. Fund of knowledge is appears to be average. Insight and judgment appear to be fair. Impulse control is fair. Vitals/I&O/Wt Last Vital Signs Temp 97.7 F 06/14/21 06:00 Pulse 58 L 06/14/21 06:00 Resp 18 06/14/21 06:00 BP 147/65 06/14/21 06:00 Pulse Ox 98 06/14/21 06:00 Weight last 48 hrs Weight 113.398 kg Data NPU : 06/13/21 20:05 06/13/21 20:05 A&P Assessment and plan (1) Social anxiety disorder: Status: Acute (2) Alcohol use disorder, mild, abuse: Status: Acute (3) Cannabis use disorder, mild, abuse: Status: Acute (4) Depression with suicidal ideation: Status: Acute Plan This is a 20-year old single male with a long history of anxiety and paranoia. He was admitted because of worsening symptoms as well as suicidal ideation. Plan: 1. Continue current medication. Increase risperidone to 6 mg at bedtime. Add Lexapro 10 mg every morning. 2. Continue every 15 minute checks for safety. 3. Encourage individual, group and milieu therapies. 4. Encourage sober living treatment after discharge at the highest level of care to which he is willing to commit. 5. We will monitor for safety for himself in the community prior to discharge. Involuntary Hold Information 96 Hour Hold: 96 Hour Involuntary Admission: No 96 Hour Hold Ending Date: 10/06/20 96 Hour Hold Ending Time: 00:25 Attestations NPU Medical Necessity Statement*: Inpatient hospitalization is medically necessary and the clinically appropriate intervention at this time. We will initiate medications and make changes as indicated. He will be in the hospital for over 2 midnights. Likely length of stay 4-6 days Coding Level of Care Code Acute Customer Solutions Representative for g Fwd Diagnoses Social anxiety disorder F40.10 Alcohol use disorder, mild, abuse F10.10 Cannabis use disorder, mild, abuse F12.10 Depression with suicidal ideation F32.A; R45.855
[2021-06-14 14:00] VITALS: BP 132/89; PULSE 84; RESP 17; TEMP 36.6; O2SAT 98
[2021-06-14] MEDS: risperiDONE 2 mg Tablet 6 MG PO (21:02)
[2021-06-14 21:10] VITALS: BP 124/80; PULSE 89; RESP 17; TEMP 36.5; O2SAT 98
[2021-06-15 06:00] VITALS: BP 132/89; PULSE 79; RESP 17; TEMP 36.8; O2SAT 98
[2021-06-15] MEDS: escitalopram 10 mg Tablet PO (10:31)
[2021-06-15 14:00] VITALS: BP 134/89; PULSE 90; RESP 20; TEMP 36.6; O2SAT 98
--- NOTE | 2021-06-15 15:51 | W.PM.NPUPNS ---
Subjective NPU Subjective: He says that the increase in risperidone to 6 mg last night worked perfectly. He slept very well. He said that his symptoms are improved. He has not had any side effects from the Lexapro thus far. Mental Status Exam MSE Comments: This is an overweight 20-year-old male who appears approximately his stated age and is in no acute distress. He was pleasant and cooperative with the evaluation. He is dressed in hospital scrubs with fair grooming. psychomotor activity is normal. Speech is at a regular rate and rhythm, normal volume, good articulation, not pressured. Alert, oriented X3 Attention and concentration appears to be normal. Memory is intact Mood is depressed. Affect is mildly dysphoric. Thought process is logical and goal-directed. Thought content: Denies auditory and visual hallucinations. No delusions or paranoia are noted. No current suicidal ideation, and no homicidal ideation. Fund of knowledge is appears to be average. Insight and judgment appear to be fair. Impulse control is fair. Cognition: Patient Appearance: Appropriate Level of Consciousness: Awake and Alert Ability to Follow Directions: Good Patient Orientation (long list): Person, Place, Name, Age and Birthday Comprehension Ability: No Impairment Hallucination Type: None Delusion Description: Not Present Thought Process: Appropriate Affect: Affect Description: Appropriate Behavior: Patient Behavior: Appropriate Speech Pattern: Appropriate Vitals/I&O/Wt Last Vital Signs Temp 98 F 06/15/21 14:00 Pulse 90 06/15/21 14:00 Resp 20 H 06/15/21 14:00 BP 134/89 06/15/21 14:00 Pulse Ox 98 06/15/21 14:00 Weight last 48 hrs Weight 113.398 kg Data NPU : 06/13/21 20:05 06/13/21 20:05 A&P Assessment and plan (1) Social anxiety disorder: Status: Acute (2) Alcohol use disorder, mild, abuse: Status: Acute (3) Cannabis use disorder, mild, abuse: Status: Acute (4) Depression with suicidal ideation: Status: Acute Plan This is a 20-year old single male with a long history of anxiety and paranoia. He was admitted because of worsening symptoms as well as suicidal ideation. Plan: 1. Continue current medication. Increase risperidone to 6 mg at bedtime. Add Lexapro 10 mg every morning. 2. Continue every 15 minute checks for safety. 3. Encourage individual, group and milieu therapies. 4. Encourage sober living treatment after discharge at the highest level of care to which he is willing to commit. 5. We will monitor for safety for himself in the community prior to discharge. Involuntary Hold Information 96 Hour Hold: 96 Hour Involuntary Admission: No 96 Hour Hold Ending Date: 10/06/20 96 Hour Hold Ending Time: 00:25 Attestations NPU Medical Necessity Statement*: Inpatient hospitalization is medically necessary and the clinically appropriate intervention at this time. We will initiate medications and make changes as indicated. Coding Level of Care Code Acute Systems Support Specialist for g Fwd Diagnoses Social anxiety disorder F40.10 Alcohol use disorder, mild, abuse F10.10 Cannabis use disorder, mild, abuse F12.10 Depression with suicidal ideation F32.A; R45.859
--- NOTE | 2021-06-15 16:12 | PC.SOCIAL ---
Patient attended and participated in group.
[2021-06-15] MEDS: ibuprofen 600 mg Tablet PO (17:53)
[2021-06-15 20:38] VITALS: BP 157/84; PULSE 86; RESP 18; TEMP 36.6; O2SAT 98
[2021-06-15] MEDS: hyDROXYzine 25 mg Capsule 50 MG PO (20:55)
[2021-06-15] MEDS: risperiDONE 2 mg Tablet 6 MG PO (20:55)
--- NOTE | 2021-06-15 21:51 | PC.NURSE ---
PRN Medication Patient requested medication for anxiety. Hydroxyzine was given
[2021-06-16 06:00] VITALS: BP 130/87; PULSE 110; RESP 19; TEMP 36.9; O2SAT 97
[2021-06-16] MEDS: escitalopram 10 mg Tablet PO (08:50)
[2021-06-16] MEDS: acetaminophen 325 mg Tablet 650 MG PO ×2 (10:08→16:09)
--- NOTE | 2021-06-16 11:57 | P.NPUPN_ITS ---
Subjective NPU Subjective: He says that he is sleeping well and feels like the anxiety is somewhat improved with the risperidone 6 mg at bedtime. He has had 2 doses of Lexapro 10 mg and was told that that is the primary medication for his anxiety and needs to be up to 40 mg before it is very effective. His mother is leaving for the weekend and will not be there until Saturday. It would not be good for him to be alone when she is gone. Mental Status Exam MSE Comments: This is an overweight 20-year-old male who appears approximately his stated age and is in no acute distress. He was pleasant and cooperative with the evaluation. He is dressed in hospital scrubs with fair grooming. psychomotor activity is normal. Speech is at a regular rate and rhythm, normal volume, good articulation, not pressured. Alert, oriented X3 Attention and concentration appears to be normal. Memory is intact Mood is depressed. Affect is dysphoric. Thought process is logical and goal-directed. Thought content: Denies auditory and visual hallucinations. No delusions or paranoia are noted. No current suicidal ideation, and no homicidal ideation. Fund of knowledge is appears to be average. Insight and judgment appear to be fair. Impulse control is fair. Cognition: Patient Appearance: Appropriate Level of Consciousness: Awake and Alert Ability to Follow Directions: Good Patient Orientation (long list): Person, Place, Name, Age and Birthday Comprehension Ability: No Impairment Hallucination Type: None Delusion Description: Not Present Thought Process: Appropriate Affect: Affect Description: Appropriate and Calm Behavior: Patient Behavior: Appropriate and Cooperative Speech Pattern: Appropriate and Clear Vitals/I&O/Wt Last Vital Signs Temp 98.4 F 06/16/21 06:00 Pulse 110 H 06/16/21 06:00 Resp 19 H 06/16/21 06:00 BP 130/87 06/16/21 06:00 Pulse Ox 97 06/16/21 06:00 Data NPU : 06/13/21 20:05 06/13/21 20:05 A&P Assessment and plan (1) Social anxiety disorder: Status: Acute (2) Alcohol use disorder, mild, abuse: Status: Acute (3) Cannabis use disorder, mild, abuse: Status: Acute (4) Depression with suicidal ideation: Status: Acute Plan This is a 20-year old single male with a long history of anxiety and paranoia. He was admitted because of worsening symptoms as well as suicidal ideation. Plan: 1. Continue current medication. Increase risperidone to 6 mg at bedtime. Add Lexapro 10 mg every morning. 2. Continue every 15 minute checks for safety. 3. Encourage individual, group and milieu therapies. 4. Encourage sober living treatment after discharge at the highest level of care to which he is willing to commit. 5. We will monitor for safety for himself in the community prior to discharge. Involuntary Hold Information 96 Hour Hold: 96 Hour Involuntary Admission: No 96 Hour Hold Ending Date: 10/06/20 96 Hour Hold Ending Time: 00:25 Attestations U Medical Necessity Statement*: Inpatient hospitalization is medically necessary and the clinically appropriate intervention at this time. We will initiate medications and make changes as indicated. Coding Level of Care Code Acute Director Of Regulatory Affairs for [employer]x Jacobs Diagnoses Social anxiety disorder F40.10 Alcohol use disorder, mild, abuse F10.10 Cannabis use disorder, mild, abuse F12.10 Depression with suicidal ideation F32.A; R45.851
[2021-06-16 14:00] VITALS: BP 130/80; PULSE 83; RESP 18; TEMP 36.5; O2SAT 98
--- NOTE | 2021-06-16 16:57 | PC.SOCIAL ---
Patient did not attend group.
[2021-06-16] MEDS: hyDROXYzine 25 mg Capsule 50 MG PO (17:14)
[2021-06-16 20:23] VITALS: BP 122/82; PULSE 139; RESP 17; O2SAT 97
[2021-06-16] MEDS: risperiDONE 2 mg Tablet 6 MG PO (20:25)
[2021-06-16] MEDS: trazodone 50 mg Tablet PO (21:47)
[2021-06-16 22:00] VITALS: PULSE 114; RESP 18
[2021-06-16] MEDS: OLANZapine 5 mg ODT PO (22:51)
--- NOTE | 2021-06-17 00:13 | PC.NURSE ---
AUTOMOTIVE DETAILER alerted this nurse to patients pulse 139. Patient sat down and retook pulse and it was 114. Patient stated he has been anxious and pacing, patient was given PRN zydis with noted effectiveness. Patient now appears to be resting quietly.
--- NOTE | 2021-06-17 01:13 | PC.NURSE ---
2147- rec'd trazodone for sleep. It was not effective.
[2021-06-17 06:00] VITALS: BP 131/90; PULSE 78; RESP 18; O2SAT 99
[2021-06-17] MEDS: escitalopram 10 mg Tablet PO (09:29)
--- NOTE | 2021-06-17 12:03 | P.NPUPN_ITS ---
Subjective NPU Subjective: He is feeling better. He said that his mother was coming back early and wanted to come and get him tomorrow afternoon and have Easter dinner together. She is bringing the food back with her. He has not had any side effects or benefits from the Lexapro but does feel that the risperidone 6 mg at bedtime is good for him. He does not have any increased appetite or other side effects from that. Mental Status Exam MSE Comments: This is an overweight 20-year-old male who appears approximately his stated age and is in no acute distress. He was pleasant and cooperative with the evaluation. He is dressed in hospital scrubs with fair grooming. psychomotor activity is normal. Speech is at a regular rate and rhythm, normal volume, good articulation, not pressured. Alert, oriented X3 Attention and concentration appears to be normal. Memory is intact Mood is depressed but better Affect is mildly dysphoric. Thought process is logical and goal-directed. Thought content: Denies auditory and visual hallucinations. No delusions or paranoia are noted. No current suicidal ideation, and no homicidal ideation. Fund of knowledge is appears to be average. Insight and judgment appear to be fair. Impulse control is fair. Cognition: Patient Appearance: Appropriate Level of Consciousness: Awake and Alert Ability to Follow Directions: Good Patient Orientation (long list): Person, Place, Name, Age and Birthday Comprehension Ability: No Impairment Hallucination Type: None Delusion Description: Not Present Thought Process: Appropriate Affect: Affect Description: Calm Behavior: Patient Behavior: Appropriate Speech Pattern: Appropriate Vitals/I&O/Wt Last Vital Signs Temp 97.7 F 06/16/21 14:00 Pulse 78 06/17/21 06:00 Resp 18 06/17/21 06:00 BP 131/90 06/17/21 06:00 Pulse Ox 99 06/17/21 06:00 Data NPU : 06/13/21 20:05 06/13/21 20:05 A&P Assessment and plan (1) Social anxiety disorder: Status: Acute (2) Alcohol use disorder, mild, abuse: Status: Acute (3) Cannabis use disorder, mild, abuse: Status: Acute (4) Depression with suicidal ideation: Status: Acute Plan This is a 20-year old single male with a long history of anxiety and p aranoia. He was admitted because of worsening symptoms as well as suicidal ideation. Plan: 1. Continue current medication. Increase risperidone to 6 mg at bedtime. Add Lexapro 10 mg every morning. 2. Continue every 15 minute checks for safety. 3. Encourage individual, group and milieu therapies. 4. Encourage sober living treatment after discharge at the highest level of care to which he is willing to commit. 5. We will monitor for safety for himself in the community prior to discharge. Involuntary Hold Information 96 Hour Hold: 96 Hour Involuntary Admission: No 96 Hour Hold Ending Date: 10/06/20 96 Hour Hold Ending Time: 00:25 Attestations NPU Medical Necessity Statement*: Inpatient hospitalization is medically necessary and the clinically appropriate intervention at this time. We will initiate medications and make changes as indicated. Coding Level of Care Code Acute Configuration Management Specialist for Maxx Jacobs Diagnoses Social anxiety disorder F40.10 Alcohol use disorder, mild, abuse F10.10 Cannabis use disorder, mild, abuse F12.10 Depression with suicidal ideation F32.A; R45.859
[2021-06-17 14:00] VITALS: BP 132/81; PULSE 91; RESP 17; TEMP 36.8; O2SAT 96
[2021-06-17] MEDS: hyDROXYzine 25 mg Capsule 50 MG PO (18:07)
--- NOTE | 2021-06-17 18:22 | PC.NURSE ---
PRN Medication Up to nurses station requesting something for anxiety. Vistaril 50 MG Given as ordered. Went back to bed and is reading a book and resting. No distress noted at this time.
[2021-06-17 19:52] VITALS: BP 134/83; PULSE 104; RESP 19; O2SAT 96
[2021-06-17] MEDS: OLANZapine 5 mg ODT PO (20:24)
[2021-06-17] MEDS: risperiDONE 2 mg Tablet 6 MG PO (20:24)
[2021-06-17] MEDS: trazodone 50 mg Tablet PO (21:25)
--- NOTE | 2021-06-17 22:22 | PC.NURSE ---
2023 rec'd diya for his increasing anxiety 2124 requested trazodone for sleep. It was effective.
[2021-06-18 06:00] VITALS: BP 128/87; PULSE 78; RESP 17; TEMP 36.4; O2SAT 97
--- NOTE | 2021-06-18 07:25 | P.NPUDS_ITS ---
Diagnoses at Discharge Discharge Diagnosis (1) Social anxiety disorder: Status: Acute (2) Alcohol use disorder, mild, abuse: Status: Acute (3) Cannabis use disorder, mild, abuse: Status: Acute (4) Depression with suicidal ideation: Status: Acute Reason for Visit Reason for Visit: Mental eval Brief History: History of Present Illness Micheal Adams is a 20 year old male admitted to our emergency department with the following report: HPI: [20]yo patient w/ hx of depression presenting for SI.? Patient tells me that he is depressed and having suicidal ideation.? Patient is concerned that he is not getting better. On arrival, the patient is AAOx3 and cooperative with my evaluation. No focal complaints of chest pain, shortness of breath, palpitations, N/V, focal GI/ complaints. Currently denies HI. No complaints of hallucinations. He was admitted to the neuropsychiatry unit for definitive treatment of these issues.? He said he has had worsening symptoms for the last couple of months.? He said that he stopped the Haldol and Zoloft shortly after the last admission because he was having side effects.? He was having sweating and hand tremors.? He stopped the medicines and they went away.? His current psychiatrist has gradually increased him up to risperidone 2 mg twice a day.? He says he takes it all at bedtime because he has difficulty sleeping and it helps.? He said the 4 mg knocks him out.? He has not really helped his psychotic symptoms.? He hears taking noises.? He also gets paranoid.? He thinks that people around him are spies and that there is a conspiracy against him.? He initially just told me about the social anxiety that he has.? He lives in a hotel room which caused him $450 per month.? His disability is enough to pay for that and food.? Sometimes he is paralyzed staying cannot get out of bed or move.? He because have a catatonic state.? Sometimes his anxiety is overwhelming.? He always has difficulty sleeping without taking something.? Marijuana has been what has been most helpful for him.? He does not think that he has taken a medication which has helped his anxiety or his paranoia previously.? When he was a teenager he was on about 15 different medications and he does not know if any of them helped.? His childhood was bad.? He said that they were too many bad things that he could not start to count them.? He said that his whole family was crazy.? His mother was a methamphetamine addict.? Several family members are alcoholics.? He said that he grew up in the system .? He says that he has been diagnosed with schizophrenia but does not believe that he has schizophrenia.? He was educated on the treatment of anxiety.? He agreed to take some Lexapro and increase the risperidone to 6 mg at bedtime. Hospital Course Hospital Course He slowly acclimated to the individual, group and milieu therapies provided. Risperidone was increased from 4 mg up to 6 mg. Lexapro was added and discharged on 20 mg daily with a target dose of 40 mg daily for anxiety. He tolerated these doses and showed steady improvement during his stay. He was able to contract for safety outside hospital prior to discharge. During the hospitalization, patient had routine laboratory studies which were within normal limits except for few outliers. Additionally there was a general medical evaluation which was also within normal limits and revealed no new acute processes. Discharge Summary: At the time of discharge, lethality was denied and psychosis was resolving. Mood and anxiety were well managed. Patient endorsed a plan to follow-up with the aftercare recommendations of the treatment team. Patient was evaluated and deemed to be absent credible lethality, and had achieved the maximum benefit from an inpatient hospitalization, so was discharged. Involuntary Hold Information 96 Hour Hold: 96 Hour Involuntary Admission: No 96 Hour Hold Ending Date: 10/06/20 96 Hour Hold Ending Time: 00:25 Mental Status Exam MSE Comments: This is an overweight 20-year-old male who appears approximately his stated age and is in no acute distress. He was pleasant and cooperative with the evaluation. He is dressed in hospital scrubs with fair grooming. psychomotor activity is normal. Speech is at a regular rate and rhythm, normal volume, good articulation, not pressured. Alert, oriented X3 Attention and concentration appears to be normal. Memory is intact Mood is depressed but better Affect is mildly dysphoric. Thought process is logical and goal-directed. Thought content: Denies auditory and visual hallucinations. No delusions or paranoia are noted. No current suicidal ideation, and no homicidal ideation. Fund of knowledge is appears to be average. Insight and judgment appear to be fair. Impulse control is fair. Cognition: Patient Appearance: Appropriate Level of Consciousness: Awake and Alert Ability to Follow Directions: Good Patient Orientation (long list): Person, Place, Name, Age and Birthday Comprehension Ability: No Impairment Hallucination Type: None Delusion Description: Not Present Thought Process: Appropriate Affect: Affect Description: Appropriate Behavior: Patient Behavior: Appropriate Speech Pattern: Appropriate Discharge Data Studies Completed and Pending: Laboratory Results WBC 8.9 10^3/uL (4.0- 10.0) 06/13/21 20:05 RBC 5.09 10^6/uL (4.1 -5.3) 06/13/21 20:05 Hgb 15.1 g/dL (11.7-1 6.6) 06/13/21 20:05 Hct 44.6 % (42.0-52.0 ) 06/13/21 20:05 MCV 87.6 fl (80-94) 06/13/21 20:05 MCH 29.7 pg (28.0-34. 0) 06/13/21 20:05 MCHC 33.9 g/dL (30.0-3 6.0) 06/13/21 20:05 RDW 13.3 % (12.1-15.1 ) 06/13/21 20:05 Plt Count 253 10^3/cmm (130 -400) 06/13/21 20:05 MPV 10.4 fL (7.4-10.4 ) 06/13/21 20:05 Neut % (Auto) 59.0 % 06/13/21 20:05 Lymph % (Auto) 26.7 % 06/13/21 20:05 [place] % (Auto) 11.1 % 06/13/21 20:05 Eos % (Auto) 2.1 % 06/13/21 20:05 Baso % (Auto) 0.8 % 06/13/21 20:05 Neut # (Auto) 5.24 10^3/uL (1.8 -7.7) 06/13/21 20:05 Lymph # (Auto) 2.4 10^3/uL (0.8- 4.8) 06/13/21 20:05 [place] # (Auto) 1.0 10^3/uL (0.2- 0.9) H 06/13/21 20:05 Eos # (Auto) 0.2 10^3/uL (0.0- 0.8) 06/13/21 20:05 Baso # (Auto) 0.1 10^3/uL (0.0- 0.1) 06/13/21 20:05 Nucleated RBC % (a uto) 0 % 06/13/21 20:05 Nucleated RBCs # 0.0 /100WBC 06/13/21 20:05 Sodium 138 mmol/L (136-1 45) 06/13/21 20:05 Potassium 4.0 mmol/L (3.5-5 .1) 06/13/21 20:05 Chloride 104 mmol/L (98-10 7) 06/13/21 20:05 Carbon Dioxide 22 mmol/L (22-29) 06/13/21 20:05 Anion Gap 16.0 (5-19) 06/13/21 20:05 BUN 7 mg/dL (6-20) 06/13/21 20:05 Creatinine 0.7 mg/dL (0.7-1. 2) 06/13/21 20:05 GFR Calculation 142.4 mL/min (90- 130) H 06/13/21 20:05 Glucose 95 mg/dL (65-115) 06/13/21 20:05 Calculated Osmolal ity 284 mOsm/kg (285- 295) L 06/13/21 20:05 Calcium 9.9 mg/dL (8.5-10 .5) 06/13/21 20:05 Total Bilirubin 0.7 mg/dL (0.15-1 .2) 06/13/21 20:05 AST 19 U/L (0-40) 06/13/21 20:05 ALT 31 U/L (0-41) 06/13/21 20:05 Alkaline Phosphata se 103 IU/L (40-130) 06/13/21 20:05 Total Protein 8.3 g/dL (6.6-8.7 ) 06/13/21 20:05 Albumin 4.9 g/dL (3.5-5.2 ) 06/13/21 20:05 Globulin 3.4 g/dL (1.3-4.6 ) 06/13/21 20:05 TSH 1.44 uIU/mL (0.27 -4.20) 06/13/21 20:05 Salicylates < 0.3 mg/dL (3-10 ) L 06/13/21 20:05 Urine Opiates Scre en Negative ng/mL (N egative) 06/13/21 19:45 Acetaminophen < 5.0 ug/mL (10-3 0) L 06/13/21 20:05 Ur Barbiturates Sc reen Negative ng/mL (N egative) 06/13/21 19:45 Ur Phencyclidine S crn Negative ng/mL (N egative) 06/13/21 19:45 Ur Amphetamines Sc reen Negative ng/mL (N egative) 06/13/21 19:45 U Benzodiazepines Scrn Negative ng/mL (N egative) 06/13/21 19:45 Urine Cocaine Scre en Negative ng/mL (N egative) 06/13/21 19:45 U Marijuana (THC) Screen Positive ng/mL (N egative) H 06/13/21 19:45 Ethyl Alcohol < 10 mg/dL (0-10) 06/13/21 20:05 Vitals: Last Vital Signs Temp 97.5 F L 06/18/21 06:00 Pulse 78 06/18/21 06:00 Resp 17 06/18/21 06:00 BP 128/87 06/18/21 06:00 Pulse Ox 97 06/18/21 06:00 Discharge Plan Discharge Patient Disposition: Home Condition: Stable Prescriptions: New risperidone 2 mg Tablet 6 mg PO BEDTIME 30 Days Qty: 90 1RF escitalopram oxalate 20 mg tablet 20 mg PO DAILY 30 Days Qty: 30 1RF Discontinued risperidone [Risperdal] 2 mg tablet 2 mg PO BID 0RF Discharge Orders: Discharge Order (Routine); Ordered 06/18/21 Ordered By: Narayan Layne Referrals: [facility] [Other] - 06/22/21 8:15 am [facility] [place] [facility] [Outside] Discharge Diet: Regular Discharge Activity: Resume usual activity Patient Instructions: Opioid Safety Discharge Attestations NPU 2 Time Spent in Discharge Care*: less than 30 min Specific Discharge Activities: Specific discharge activities: educating patient, discussing with foster care case manager/social workers/dc planners, documenting/other paperwork and evaluating patient/reviewing data Status at Discharge: Cognitive status at discharge: cognitively intact , Behavioral status at discharge: cooperative , Coding Level of Care Code Acute Chg FW DC note Diagnoses Social anxiety disorder F40.10 Alcohol use disorder, mild, abuse F10.10 Cannabis use disorder, mild, abuse F12.10 Depression with suicidal ideation F32.A; R45.851
[2021-06-18] MEDS: escitalopram 10 mg Tablet PO (08:13)
--- NOTE | 2021-06-18 08:44 | PC.NURSE ---
Resting in bed arouses to voice. Denies pain. Denies SI/HI and AVH at this time. Informed that discharge is in the computer. Reports his ride will not be here until 100 o'clock. Reports to nurse that anxiety is better.
[2021-06-18 10:07] VITALS: BP 128/87; PULSE 78; RESP 17; TEMP 36.4; O2SAT 97
--- NOTE | 2021-06-18 12:59 | PC.NURSE ---
Discharge Note All discharge teaching completed. Reviewed upcoming appointments. Medication teaching completed. VSS. Verbalizes understanding. Left with all belongings. Property list signed. Left NPU with mother at 1300. All questions answered and support voiced.
== END 2021-06-18 13:00 | disposition home or self-care (01) | DRG 881 ==
LOC: ER 20:15 → NP 23:14
PROVIDERS: Emergency Medicine; Admitting Provider Psychiatry & Neurology Psychiatry; Emergency Provider Emergency Medicine; Visit Provider Psychiatry & Neurology Psychiatry
DX: F32.A Depression, unspecified (principal); R45.851 Suicidal ideations; F40.10 Social phobia, unspecified; F10.10 Alcohol abuse, uncomplicated; F12.10 Cannabis abuse, uncomplicated; F41.9 Anxiety disorder, unspecified; F22 Delusional disorders; Z81.8 Family history of other mental and behavioral disorders; Z81.3 Family history of other psychoactive substance abuse and dependence
CPT/HCPCS: 80053; 80306; 80307; 84443; 85025; 97150; 97165; 99285

== ENCOUNTER → 2021-09-06 13:37 | Outpatient (BNVA) | payer MEDICAID, SELFPAY | PROVIDERS: PCP Nurse Practitioner Family; Referring Provider Nurse Practitioner Family; Visit Provider Specialist | DX: F44.9 Dissociative and conversion disorder, unspecified (principal); F43.10 Post-traumatic stress disorder, unspecified | CPT/HCPCS: 99204 ==

== ENCOUNTER → 2021-09-20 08:09 | Outpatient (BNVA) | payer MEDICAID, SELFPAY | PROVIDERS: PCP Nurse Practitioner Family; Referring Provider Nurse Practitioner Family; Visit Provider Specialist | DX: R56.9 Unspecified convulsions (principal) | CPT/HCPCS: 95812; 95816 ==